=== PATIENT | male | born 1940 | race Caucasian/White ===

== ENCOUNTER 2017-08-03 16:51 | Inpatient (IN) | payer OTHER, MEDICARE ==
[~2017-08-03] VITALS: Ht 177.8 cm; Wt 83.0 kg
[~2017-08-03 16:51] MED LIST: ALLERGY MEDICATION; ARIP10 PO; ATOR40TA PO; Abilify5 MG PO; BIPOLAR MEDS; BUDE200IP INH; CARV6.25 PO; CITA20 PO; Daily Multiple1 EACH PO; FINA5 PO; Flunisolide25 ML NS; GABA300 PO; HYDACE10B PO; LATA.005SO BOTHEYES; Lanoxin250 MCG; METPRE4DP PO; METR500 PO; MULTIVITAMIN/MINERAL PO; ROSU10TA PO; ULTIMATE COLON CARE PO; VANC250 PO; WARF2.5 PO; WARF3 PO; WARF5 PO
[2017-08-03 17:47] LABS: Hematocrit 42.8 % (37.0-53.0); Mean Corpuscular HGB 30.4 pg (26.0-34.0); Mean Corpuscular Volume 87 fL (80-100); Mean Platelet Volume 10.5 fL (9.1-12.4); Platelet Count 108 K/mm3 (150-400); RDW Coefficient Variation 14.4 % (11.7-14.2); RDW Standard Deviation 45.8 fL (35.1-46.3); Red Blood Cell Count 4.93 M/mm3 (4.30-5.90); White Blood Cell Count 12.85 K/mm3 (4.00-11.30)
[2017-08-03 17:59] LABS: International Normalized Ratio 1.21; Prothrombin Time Results 12.7 Sec (9.7-11.5)
[2017-08-03 18:24] LABS: Alanine Aminotransfer (ALT/SGP 19 U/L (12-78); Albumin/Globulin Ratio 1.1 (0.8-1.8); Alk Phos 123 U/L (50-136); Anion Gap 11 mmol/L (6-16); Aspartate Aminotrans (AST/SGOT 21 U/L (12-37); Bilirubin, Total 1.7 mg/dL (0.1-1.0); Blood Urea Nitrogen 12 mg/dL (8-24); Bun/Creatinine Ratio 15.4 (12.0-20.0); CO2, Blood 27 mmol/L (21-32); Calcium, Blood 9.1 mg/dL (8.5-10.1); Chloride, Blood 95 mmol/L (98-108); Creatinine, Blood 0.78 mg/dL (0.60-1.20); Globulin, Blood 3.8 g/dL (2.2-4.0); Glomerular Filtration Rate >60 (60-); Glucose, Blood 106 mg/dL (70-99); Potassium, Blood 2.9 mmol/L (3.5-5.5); Sodium, Blood 133 mmol/L (136-145); Total Protein, Blood 7.8 g/dL (6.4-8.2); Troponin I <0.015 ng/mL (0.000-0.040)
[2017-08-03] MEDS ORDERED: ELIQUIS5 MG PO (18:36)
[2017-08-03] MEDS ORDERED: ALBU90OI61 INH (18:36)
[2017-08-03] MEDS ORDERED: Azopt10 ML (18:37)
[2017-08-03] MEDS ORDERED: ERGO400 PO (18:37)
[2017-08-03] MEDS ORDERED: CETI5 PO (18:37)
[2017-08-03] MEDS ORDERED: DILT120 PO (18:38)
[2017-08-03] MEDS ORDERED: DIPH50 PO (18:39)
[2017-08-03] MEDS ORDERED: Acidophilus La100 GM (18:40)
[2017-08-03] MEDS ORDERED: KETO10 PO (18:40)
[2017-08-03] MEDS ORDERED: LEVSOD50 PO (18:41)
[2017-08-03 18:58] LABS: BASOPHILS ABSOLUTE MAN 0.12 K/mm3 (0.00-0.23); BASOPHILS PERCENT MAN 1 % (0-2); EOSINOPHILS PERCENT MAN 0 % (0-6); LYMPHOCYTES % ATYPICAL MANUAL 1 % (0-0); LYMPHOCYTES ABSOLUTE MAN 2.57 K/mm3 (0.84-5.20); LYMPHOCYTES PERCENT MAN 19 % (21-46); MONOCYTES ABSOLUTE MAN 0.38 K/mm3 (0.16-1.47); MONOCYTES PERCENT MAN 3 % (4-13); NEUTROPHILS ABSOLUTE MAN 9.76 K/mm3 (1.96-9.15); SEG NEUTROPHILS PERCENT MAN 76 % (41-73); TOTAL CELLS COUNTED 100
[2017-08-03] MEDS ORDERED: COUGHTAB200 MG PO (21:07)
[2017-08-03] MEDS ORDERED: ONDA4ODT MM (21:10)
[2017-08-04 04:30] LABS: BASOPHILS ABSOLUTE AUTO 0.03 K/mm3 (0.00-0.23); BASOPHILS PERCENT AUTO 0 % (0-2); EOSINOPHILS ABSOLUTE AUTO 0.06 K/mm3 (0.00-0.68); EOSINOPHILS PERCENT AUTO 1 % (0-6); Hematocrit 43.9 % (37.0-53.0); Hemoglobin 15.2 g/dL (13.5-17.5); IMMATURE GRAN ABSOLUTE AUTO 0.02 K/mm3 (0.00-0.10); IMMATURE GRAN PERCENT AUTO 0 % (0-1); LYMPHOCYTES ABSOLUTE AUTO 1.64 K/mm3 (0.84-5.20); LYMPHOCYTES PERCENT AUTO 16 % (21-46); MONOCYTES ABSOLUTE AUTO 0.96 K/mm3 (0.16-1.47); MONOCYTES PERCENT AUTO 10 % (4-13); Mean Corpuscular HGB Conc 34.6 g/dL (31.5-36.5); Mean Corpuscular Volume 89 fL (80-100); Mean Platelet Volume 11.4 fL (9.1-12.4); NEUTROPHILS ABSOLUTE AUTO 7.38 K/mm3 (1.96-9.15); NEUTROPHILS PERCENT AUTO 73 % (41-73); Platelet Count 103 K/mm3 (150-400); RDW Coefficient Variation 14.5 % (11.7-14.2); Red Blood Cell Count 4.91 M/mm3 (4.30-5.90); White Blood Cell Count 10.09 K/mm3 (4.00-11.30)
[2017-08-04 04:51] LABS: Anion Gap 12 mmol/L (6-16); Blood Urea Nitrogen 11 mg/dL (8-24); Bun/Creatinine Ratio 15.6 (12.0-20.0); CO2, Blood 26 mmol/L (21-32); Calcium, Blood 8.4 mg/dL (8.5-10.1); Chloride, Blood 102 mmol/L (98-108); Glomerular Filtration Rate >60 (60-); Glucose, Blood 101 mg/dL (70-99); Potassium, Blood 2.5 mmol/L (3.5-5.5); Sodium, Blood 140 mmol/L (136-145)
[2017-08-04 21:09] LABS: Anion Gap 10 mmol/L (6-16); Blood Urea Nitrogen 11 mg/dL (8-24); Bun/Creatinine Ratio 15.3 (12.0-20.0); CO2, Blood 26 mmol/L (21-32); Calcium, Blood 8.4 mg/dL (8.5-10.1); Chloride, Blood 107 mmol/L (98-108); Creatinine, Blood 0.72 mg/dL (0.60-1.20); Glomerular Filtration Rate >60 (60-); Glucose, Blood 98 mg/dL (70-99); Potassium, Blood 3.6 mmol/L (3.5-5.5); Sodium, Blood 143 mmol/L (136-145)
[2017-08-05 06:16] LABS: Anion Gap 8 mmol/L (6-16); Blood Urea Nitrogen 12 mg/dL (8-24); Bun/Creatinine Ratio 16.2 (12.0-20.0); CO2, Blood 25 mmol/L (21-32); Calcium, Blood 8.4 mg/dL (8.5-10.1); Chloride, Blood 109 mmol/L (98-108); Creatinine, Blood 0.74 mg/dL (0.60-1.20); Glomerular Filtration Rate >60 (60-); Glucose, Blood 94 mg/dL (70-99); Sodium, Blood 142 mmol/L (136-145)
[2017-08-05] MEDS ORDERED: ALBU90OI INH (11:09)
[2017-08-05] MEDS ORDERED: DILT300 PO (11:10)
[2017-08-05] MEDS ORDERED: CIPR500 PO (11:13)
[2017-08-05] MEDS ORDERED: METR500 PO (11:13)
== END 2017-08-05 14:30 | disposition home or self-care (01) | DRG 309 ==
LOC: ER 16:51 → PCU 18:35
PROVIDERS: Emergency Medicine; Internal Medicine
DX: I48.91 Unspecified atrial fibrillation (principal); K57.92 Diverticulitis of intestine, part unspecified, without perforation or abscess without bleeding; I50.9 Heart failure, unspecified; J44.9 Chronic obstructive pulmonary disease, unspecified; E03.9 Hypothyroidism, unspecified; E87.6 Hypokalemia; F31.9 Bipolar disorder, unspecified; G47.33 Obstructive sleep apnea (adult) (pediatric); Z79.01 Long term (current) use of anticoagulants; Z86.718 Personal history of other venous thrombosis and embolism; Z87.891 Personal history of nicotine dependence
CPT/HCPCS: 36415; 80048; 80053; 83605; 83735; 83880; 84443; 84484; 85025; 85610; 85730; 87040; 93005; 93010; 94640; 94762; 96365; 96366; 99285; C1751; C9113; J0696; J2405; J2550; J7030; J7040; Q0163

== ENCOUNTER 2017-10-21 18:42 | Inpatient (IN) | payer MEDICARE ==
[~2017-10-21] VITALS: Ht 175.3 cm; Wt 76.8 kg
[~2017-10-21 18:42] MED LIST changes: +ALBU90OI INH; +ALBU90OI61 INH; +Acidophilus La100 GM; +Azopt10 ML; +CETI5 PO; +CIPR500 PO; +COUGHTAB200 MG PO; +DILT120 PO; +DILT300 PO; +DIPH50 PO; +ELIQUIS5 MG PO; +ERGO400 PO; +KETO10 PO; +LEVSOD50 PO; +ONDA4ODT MM
[2017-10-21] MEDS ORDERED: KETO60I IM (19:55)
[2017-10-21 21:36] LABS: BASOPHILS ABSOLUTE AUTO 0.03 K/mm3 (0.00-0.23); BASOPHILS PERCENT AUTO 0 % (0-2); EOSINOPHILS ABSOLUTE AUTO 0.01 K/mm3 (0.00-0.68); EOSINOPHILS PERCENT AUTO 0 % (0-6); Hematocrit 46.3 % (37.0-53.0); Hemoglobin 16.4 g/dL (13.5-17.5); IMMATURE GRAN ABSOLUTE AUTO 0.05 K/mm3 (0.00-0.10); IMMATURE GRAN PERCENT AUTO 0 % (0-1); LYMPHOCYTES ABSOLUTE AUTO 2.53 K/mm3 (0.84-5.20); LYMPHOCYTES PERCENT AUTO 20 % (21-46); MONOCYTES ABSOLUTE AUTO 1.17 K/mm3 (0.16-1.47); MONOCYTES PERCENT AUTO 9 % (4-13); Mean Corpuscular HGB 29.5 pg (26.0-34.0); Mean Corpuscular HGB Conc 35.4 g/dL (31.5-36.5); Mean Corpuscular Volume 83 fL (80-100); Mean Platelet Volume 11.3 fL (9.1-12.4); NEUTROPHILS ABSOLUTE AUTO 8.69 K/mm3 (1.96-9.15); NEUTROPHILS PERCENT AUTO 70 % (41-73); Platelet Count 128 K/mm3 (150-400); RDW Coefficient Variation 13.9 % (11.7-14.2); RDW Standard Deviation 42.7 fL (35.1-46.3); Red Blood Cell Count 5.56 M/mm3 (4.30-5.90); White Blood Cell Count 12.48 K/mm3 (4.00-11.30)
[2017-10-21 21:53] LABS: Magnesium, Blood 2.2 mg/dL (1.6-2.4); Troponin I 0.067 ng/mL (0.000-0.040)
[2017-10-21 22:11] LABS: Alanine Aminotransfer (ALT/SGP 21 U/L (12-78); Albumin, Blood 3.5 g/dL (3.4-5.0); Albumin/Globulin Ratio 0.9 (0.8-1.8); Alk Phos 134 U/L (50-136); Anion Gap 12 mmol/L (6-16); Aspartate Aminotrans (AST/SGOT 28 U/L (12-37); Bilirubin, Total 1.3 mg/dL (0.1-1.0); Blood Urea Nitrogen 25 mg/dL (8-24); CO2, Blood 30 mmol/L (21-32); Calcium, Blood 9.1 mg/dL (8.5-10.1); Chloride, Blood 89 mmol/L (98-108); Creatinine, Blood 1.19 mg/dL (0.60-1.20); Globulin, Blood 3.9 g/dL (2.2-4.0); Glomerular Filtration Rate >60 (60-); Glucose, Blood 166 mg/dL (70-99); Potassium, Blood 2.4 mmol/L (3.5-5.5); Sodium, Blood 131 mmol/L (136-145); Total Protein, Blood 7.4 g/dL (6.4-8.2)
[2017-10-21 22:16] LABS: Source, Urine Voided
[2017-10-21 22:19] LABS: Appearance, Urine Clear (Clear); Bilirubin, Urine Neg (Neg); Blood, Urine Neg (Neg); Color, Urine Yellow (P-Yellow); Glucose Qualitative, Urine Neg (Neg); Ketones, Urine Neg (Neg); Leukocyte Esterase, Urine Neg (Neg); Nitrite, Urine Neg (Neg); Protein, Urine 2+ (Neg); Urobilinogen, Urine NORM (Normal)
[2017-10-21 22:30] LABS: White Blood Cells, Urine Not Seen /hpf (0-5)
[2017-10-21 22:31] LABS: Amorphous Light (0-Heavy); Bacteria Not Seen /hpf; Red Blood Cells, Urine Not Seen /hpf (0-2); Squamous Epithelial Cells Not Seen /hpf (Few)
[2017-10-21 23:46] LABS: Bicarbonate Venous 35.2 mmol/L (24.0-30.0); PCO2 Venous 38.7 mmHg (38-42); PO2 Venous 27.9 mmHg (38-42); pH Blood Venous 7.58 (7.34-7.37)
[2017-10-22 05:11] LABS: BASOPHILS ABSOLUTE AUTO 0.02 K/mm3 (0.00-0.23); BASOPHILS PERCENT AUTO 0 % (0-2); EOSINOPHILS ABSOLUTE AUTO 0.03 K/mm3 (0.00-0.68); EOSINOPHILS PERCENT AUTO 0 % (0-6); Hematocrit 43.9 % (37.0-53.0); Hemoglobin 15.2 g/dL (13.5-17.5); IMMATURE GRAN ABSOLUTE AUTO 0.04 K/mm3 (0.00-0.10); IMMATURE GRAN PERCENT AUTO 0 % (0-1); LYMPHOCYTES ABSOLUTE AUTO 2.18 K/mm3 (0.84-5.20); LYMPHOCYTES PERCENT AUTO 19 % (21-46); MONOCYTES ABSOLUTE AUTO 1.12 K/mm3 (0.16-1.47); MONOCYTES PERCENT AUTO 10 % (4-13); Mean Corpuscular HGB 29.5 pg (26.0-34.0); Mean Corpuscular HGB Conc 34.6 g/dL (31.5-36.5); Mean Corpuscular Volume 85 fL (80-100); NEUTROPHILS ABSOLUTE AUTO 8.07 K/mm3 (1.96-9.15); NEUTROPHILS PERCENT AUTO 70 % (41-73); Platelet Count 118 K/mm3 (150-400); RDW Coefficient Variation 14.6 % (11.7-14.2); Red Blood Cell Count 5.15 M/mm3 (4.30-5.90); White Blood Cell Count 11.46 K/mm3 (4.00-11.30)
[2017-10-22 05:24] LABS: Anion Gap 9 mmol/L (6-16); Blood Urea Nitrogen 20 mg/dL (8-24); Bun/Creatinine Ratio 16.8 (12.0-20.0); CO2, Blood 28 mmol/L (21-32); Calcium, Blood 8.3 mg/dL (8.5-10.1); Chloride, Blood 101 mmol/L (98-108); Creatinine, Blood 1.19 mg/dL (0.60-1.20); Glomerular Filtration Rate >60 (60-); Glucose, Blood 117 mg/dL (70-99); Potassium, Blood 2.8 mmol/L (3.5-5.5); Sodium, Blood 138 mmol/L (136-145)
[2017-10-22 05:52] LABS: Base Excess Venous 4.9 mmol/L; Bicarbonate Venous 26.7 mmol/L (24.0-30.0); PCO2 Venous 48.9 mmHg (38-42); pH Blood Venous 7.39 (7.34-7.37)
[2017-10-22 06:41] LABS: Troponin I 0.061 ng/mL (0.000-0.040)
[2017-10-23 05:47] LABS: BASOPHILS ABSOLUTE AUTO 0.04 K/mm3 (0.00-0.23); BASOPHILS PERCENT AUTO 0 % (0-2); EOSINOPHILS ABSOLUTE AUTO 0.19 K/mm3 (0.00-0.68); EOSINOPHILS PERCENT AUTO 2 % (0-6); Hematocrit 48.3 % (37.0-53.0); Hemoglobin 15.8 g/dL (13.5-17.5); IMMATURE GRAN ABSOLUTE AUTO 0.04 K/mm3 (0.00-0.10); IMMATURE GRAN PERCENT AUTO 0 % (0-1); LYMPHOCYTES ABSOLUTE AUTO 2.71 K/mm3 (0.84-5.20); LYMPHOCYTES PERCENT AUTO 26 % (21-46); MONOCYTES ABSOLUTE AUTO 1.04 K/mm3 (0.16-1.47); MONOCYTES PERCENT AUTO 10 % (4-13); Mean Corpuscular HGB 29.8 pg (26.0-34.0); Mean Corpuscular HGB Conc 32.7 g/dL (31.5-36.5); NEUTROPHILS ABSOLUTE AUTO 6.61 K/mm3 (1.96-9.15); NEUTROPHILS PERCENT AUTO 62 % (41-73); RDW Coefficient Variation 14.6 % (11.7-14.2); RDW Standard Deviation 49.2 fL (35.1-46.3); White Blood Cell Count 10.63 K/mm3 (4.00-11.30)
[2017-10-23 05:50] LABS: Mean Corpuscular Volume 91 fL (80-100); Mean Platelet Volume 11.7 fL (9.1-12.4); Platelet Count 75 K/mm3 (150-400)
[2017-10-23 06:06] LABS: Albumin, Blood 3.3 g/dL (3.4-5.0); Anion Gap 8 mmol/L (6-16); Blood Urea Nitrogen 12 mg/dL (8-24); Bun/Creatinine Ratio 14.4 (12.0-20.0); CO2, Blood 23 mmol/L (21-32); Chloride, Blood 110 mmol/L (98-108); Creatinine, Blood 0.83 mg/dL (0.60-1.20); Glomerular Filtration Rate >60 (60-); Glucose, Blood 98 mg/dL (70-99); Magnesium, Blood 2.4 mg/dL (1.6-2.4); Phosphorus, Blood 1.8 mg/dL (2.5-4.9); Potassium, Blood 3.7 mmol/L (3.5-5.5); Sodium, Blood 141 mmol/L (136-145)
[2017-10-24 04:27] LABS: Hemoglobin 14.6 g/dL (13.5-17.5); Mean Corpuscular HGB 29.7 pg (26.0-34.0); Mean Corpuscular HGB Conc 33.2 g/dL (31.5-36.5); Mean Corpuscular Volume 89 fL (80-100); Mean Platelet Volume 11.1 fL (9.1-12.4); Platelet Count 94 K/mm3 (150-400); RDW Coefficient Variation 14.3 % (11.7-14.2); RDW Standard Deviation 46.3 fL (35.1-46.3); Red Blood Cell Count 4.92 M/mm3 (4.30-5.90); White Blood Cell Count 9.98 K/mm3 (4.00-11.30)
[2017-10-24 04:48] LABS: Albumin, Blood 2.9 g/dL (3.4-5.0); Anion Gap 8 mmol/L (6-16); Blood Urea Nitrogen 11 mg/dL (8-24); Bun/Creatinine Ratio 13.7 (12.0-20.0); CO2, Blood 23 mmol/L (21-32); Calcium, Blood 8.8 mg/dL (8.5-10.1); Chloride, Blood 111 mmol/L (98-108); Creatinine, Blood 0.81 mg/dL (0.60-1.20); Glomerular Filtration Rate >60 (60-); Glucose, Blood 84 mg/dL (70-99); Phosphorus, Blood 1.9 mg/dL (2.5-4.9); Potassium, Blood 3.5 mmol/L (3.5-5.5); Sodium, Blood 142 mmol/L (136-145)
[2017-10-24] MEDS ORDERED: DILT180 PO (13:33)
[2017-10-24] MEDS ORDERED: MIRALAX17 GM PO (13:39)
[2017-10-24] MEDS ORDERED: ONDA4ODT MM (13:42)
== END 2017-10-24 15:21 | disposition home or self-care (01) | DRG 308 ==
LOC: ER 18:42 → PCU 20:34
PROVIDERS: Emergency Medicine; Family Medicine; Hospitalist; Internal Medicine
DX: I48.2 Chronic atrial fibrillation (principal); G93.41 Metabolic encephalopathy; E87.2 Acidosis; E87.1 Hypo-osmolality and hyponatremia; Z79.01 Long term (current) use of anticoagulants; E87.6 Hypokalemia; E83.39 Other disorders of phosphorus metabolism; R79.89 Other specified abnormal findings of blood chemistry; D69.6 Thrombocytopenia, unspecified; F31.9 Bipolar disorder, unspecified; G47.33 Obstructive sleep apnea (adult) (pediatric); I11.0 Hypertensive heart disease with heart failure; K57.30 Diverticulosis of large intestine without perforation or abscess without bleeding
CPT/HCPCS: 36415; 71046; 74176; 80048; 80053; 80069; 81001; 82803; 83605; 83735; 84132; 84145; 84484; 85025; 85027; 87040; 93005; 93010; 96365; 96366; 96368; 96375; 99285; C1751; J0696; J1120; J2060; J2405; J2550; J3010; J3370; J3411; J3475; J3480; J7030; J7040; J7042; J7050; J7060

== ENCOUNTER 2020-09-03 13:39 | Emergency (ER) | payer OTHER, MEDICARE ==
[~2020-09-03] VITALS: Ht 177.8 cm; Wt 127.0 kg
[~2020-09-03 13:39] MED LIST changes: -Azopt10 ML; +DILTIAZEM 24HR300 M2 PO; +KETO60I IM; -LEVSOD50 PO; +MIRALAX17 GM PO; +SIMBRINZA 1%-0.28 ML RIGHTEYE
[2020-09-03 14:15] LABS: BASOPHILS ABSOLUTE AUTO 0.04 K/mm3 (0.00-0.23); BASOPHILS PERCENT AUTO 0 % (0-2); EOSINOPHILS ABSOLUTE AUTO 0.03 K/mm3 (0.00-0.68); EOSINOPHILS PERCENT AUTO 0 % (0-6); Hemoglobin 14.9 g/dL (13.5-17.5); IMMATURE GRAN ABSOLUTE AUTO 0.04 K/mm3 (0.00-0.10); IMMATURE GRAN PERCENT AUTO 0 % (0-1); LYMPHOCYTES ABSOLUTE AUTO 1.35 K/mm3 (0.84-5.20); LYMPHOCYTES PERCENT AUTO 15 % (21-46); MONOCYTES ABSOLUTE AUTO 0.32 K/mm3 (0.16-1.47); MONOCYTES PERCENT AUTO 4 % (4-13); Mean Corpuscular HGB 30.3 pg (26.0-34.0); Mean Corpuscular HGB Conc 33.1 g/dL (31.5-36.5); Mean Corpuscular Volume 92 fL (80-100); Mean Platelet Volume 10.9 fL (9.1-12.4); NEUTROPHILS ABSOLUTE AUTO 7.21 K/mm3 (1.96-9.15); NEUTROPHILS PERCENT AUTO 80 % (41-73); Platelet Count 151 K/mm3 (150-400); RDW Coefficient Variation 14.7 % (11.7-14.2); RDW Standard Deviation 49.1 fL (35.1-46.3); Red Blood Cell Count 4.92 M/mm3 (4.30-5.90); White Blood Cell Count 8.99 K/mm3 (4.00-11.30)
[2020-09-03 14:32] LABS: Albumin, Blood 3.5 g/dL (3.4-5.0); Albumin/Globulin Ratio 0.8 (0.8-1.8); Bilirubin, Total 0.6 mg/dL (0.1-1.0); Bun/Creatinine Ratio 17.7 (12.0-20.0); Calcium, Blood 9.7 mg/dL (8.5-10.1); Creatinine, Blood 1.3 mg/dL (0.60-1.20); Globulin, Blood 4.3 g/dL (2.2-4.0); Potassium, Blood 4.7 mmol/L (3.5-5.5); Total Protein, Blood 7.8 g/dL (6.4-8.2)
[2020-09-03] MEDS ORDERED: ATOR40TA PO (15:31)
[2020-09-03] MEDS ORDERED: ZYRTEC10 M2 PO (15:32)
[2020-09-03] MEDS ORDERED: METAMUCIL POWD575 GM PO (15:35)
[2020-09-03] MEDS ORDERED: TOPROL XL200 MG PO (15:37)
== END 2020-09-03 19:25 | disposition home or self-care (01) ==
LOC: ER 13:39
PROVIDERS: Physician Assistant
DX: J44.1 Chronic obstructive pulmonary disease with (acute) exacerbation (principal); I48.91 Unspecified atrial fibrillation; I50.9 Heart failure, unspecified; Z79.51 Long term (current) use of inhaled steroids; Z79.899 Other long term (current) drug therapy; Z87.891 Personal history of nicotine dependence
CPT/HCPCS: 36415; 71046; 80053; 83880; 84484; 85025; 93005; 93010; 94644; 96374; 99285-25; J2930

== ENCOUNTER 2020-12-26 13:10 | Inpatient (IN) | payer OTHER ==
[~2020-12-26] VITALS: Ht 177.8 cm; Wt 124.0 kg
[~2020-12-26 13:10] MED LIST changes: +METAMUCIL POWD575 GM PO; +TOPROL XL200 MG PO; +ZYRTEC10 M2 PO
[2020-12-26] MEDS ORDERED: CITA20 PO (13:34)
[2020-12-26] MEDS ORDERED: FURO40 PO (13:35)
[2020-12-26] MEDS ORDERED: HYDHCL25 PO (13:37)
[2020-12-26] MEDS ORDERED: EUTHYROX88 MCG PO (13:38)
[2020-12-26] MEDS ORDERED: ASMANEX220 M14 INH (13:40)
[2020-12-26] MEDS ORDERED: KLOR-CON 1010 ME1 PO (13:41)
[2020-12-26 14:17] LABS: Alanine Aminotransfer (ALT/SGP 38 U/L (12-78); Albumin, Blood 3.3 g/dL (3.4-5.0); Albumin/Globulin Ratio 0.8 (0.8-1.8); Alk Phos 134 U/L (50-136); Anion Gap 6 mmol/L (6-16); Aspartate Aminotrans (AST/SGOT 26 U/L (12-37); Bilirubin, Total 0.8 mg/dL (0.1-1.0); Blood Urea Nitrogen 18 mg/dL (8-24); Bun/Creatinine Ratio 15.5 (12.0-20.0); CO2, Blood 25 mmol/L (21-32); Calcium, Blood 8.7 mg/dL (8.5-10.1); Chloride, Blood 107 mmol/L (98-108); Creatinine, Blood 1.16 mg/dL (0.60-1.20); Globulin, Blood 4.1 g/dL (2.2-4.0); Glomerular Filtration Rate >60 (60-); Glucose, Blood 119 mg/dL (70-99); Potassium, Blood 4.2 mmol/L (3.5-5.5); Sodium, Blood 138 mmol/L (136-145); Total Protein, Blood 7.4 g/dL (6.4-8.2); Troponin I <0.015 ng/mL (0.000-0.040)
[2020-12-26 14:21] LABS: BASOPHILS ABSOLUTE AUTO 0.04 K/mm3 (0.00-0.23); BASOPHILS PERCENT AUTO 1 % (0-2); EOSINOPHILS ABSOLUTE AUTO 0.12 K/mm3 (0.00-0.68); EOSINOPHILS PERCENT AUTO 2 % (0-6); Hematocrit 42.7 % (37.0-53.0); IMMATURE GRAN ABSOLUTE AUTO 0.05 K/mm3 (0.00-0.10); IMMATURE GRAN PERCENT AUTO 1 % (0-1); LYMPHOCYTES ABSOLUTE AUTO 2.04 K/mm3 (0.84-5.20); LYMPHOCYTES PERCENT AUTO 25 % (21-46); MONOCYTES ABSOLUTE AUTO 0.67 K/mm3 (0.16-1.47); MONOCYTES PERCENT AUTO 8 % (4-13); Mean Corpuscular HGB Conc 32.8 g/dL (31.5-36.5); Mean Corpuscular Volume 95 fL (80-100); Mean Platelet Volume 11.5 fL (9.1-12.4); NEUTROPHILS ABSOLUTE AUTO 5.13 K/mm3 (1.96-9.15); NEUTROPHILS PERCENT AUTO 64 % (41-73); Platelet Count 123 K/mm3 (150-400); RDW Coefficient Variation 14.8 % (11.7-14.2); Red Blood Cell Count 4.52 M/mm3 (4.30-5.90); White Blood Cell Count 8.05 K/mm3 (4.00-11.30)
[2020-12-26] MEDS ORDERED: VITAMIN D31000 UNI1 PO (16:40)
[2020-12-26] MEDS ORDERED: PRESERVISION A1 EAC1 PO (16:51)
[2020-12-26] MEDS ORDERED: POTA10T PO (16:51)
[2020-12-26] MEDS ORDERED: STIOLTO RESPIMAT4 G1 INH (16:52)
[2020-12-26 22:44] LABS: Source, Urine Catheter
[2020-12-26 22:47] LABS: Bilirubin, Urine Neg (Neg); Blood, Urine Neg (Neg); Glucose Qualitative, Urine Neg (Neg); Ketones, Urine Neg (Neg); Leukocyte Esterase, Urine Neg (Neg); Nitrite, Urine Neg (Neg); Protein, Urine Neg (Neg); Urobilinogen, Urine NORM (Normal)
[2020-12-26 22:50] LABS: Appearance, Urine Clear (Clear); Color, Urine Yellow (P-Yellow)
--- NOTE | 2020-12-27 04:59 | NUR ---
SHIFT SUMMARY PT TO UNIT AT BEGINNING OF SHIFT ROM ED. AXO. ON RA. IN AFIB 40'S HR. SOME CRACKLES NOTED TO BASES. ADMISSION COMPLETE. PT GIVEN 4MG BUMEX. ORDER RECEIVED FOR CATHETER TO BE PLACED TO AID IN DIURESING AND TO AID PT HE IS QUITE WEAK AND STRUGGLES TO USE URINAL AT TIMES. PT THANKFUL FOR CATHETER FOR THE NOIGHT, HAS OUTPUT >3000ML SO FAR POST BUMEX. OTHERWISE, PT RESTING POST ADMIT. USES CALL LIGHT APPROPRIATELY. BED ALARM ON. WILL CONTINUE TO MONITOR UNTIL SHIFT CHANGE.
[2020-12-27 05:00] LABS: BASOPHILS ABSOLUTE AUTO 0.05 K/mm3 (0.00-0.23); BASOPHILS PERCENT AUTO 1 % (0-2); EOSINOPHILS ABSOLUTE AUTO 0.15 K/mm3 (0.00-0.68); EOSINOPHILS PERCENT AUTO 2 % (0-6); Hematocrit 44.7 % (37.0-53.0); Hemoglobin 14.5 g/dL (13.5-17.5); IMMATURE GRAN ABSOLUTE AUTO 0.05 K/mm3 (0.00-0.10); IMMATURE GRAN PERCENT AUTO 1 % (0-1); LYMPHOCYTES ABSOLUTE AUTO 2.07 K/mm3 (0.84-5.20); LYMPHOCYTES PERCENT AUTO 24 % (21-46); MONOCYTES ABSOLUTE AUTO 0.68 K/mm3 (0.16-1.47); MONOCYTES PERCENT AUTO 8 % (4-13); Mean Corpuscular HGB 30.5 pg (26.0-34.0); Mean Corpuscular HGB Conc 32.4 g/dL (31.5-36.5); Mean Corpuscular Volume 94 fL (80-100); Mean Platelet Volume 11.1 fL (9.1-12.4); NEUTROPHILS PERCENT AUTO 65 % (41-73); Platelet Count 114 K/mm3 (150-400); RDW Coefficient Variation 14.6 % (11.7-14.2); RDW Standard Deviation 50.5 fL (35.1-46.3); Red Blood Cell Count 4.75 M/mm3 (4.30-5.90)
[2020-12-27 05:39] LABS: Alanine Aminotransfer (ALT/SGP 35 U/L (12-78); Albumin, Blood 3.5 g/dL (3.4-5.0); Albumin/Globulin Ratio 0.9 (0.8-1.8); Alk Phos 140 U/L (50-136); Anion Gap 6 mmol/L (6-16); Aspartate Aminotrans (AST/SGOT 14 U/L (12-37); Bilirubin, Total 0.7 mg/dL (0.1-1.0); Blood Urea Nitrogen 18 mg/dL (8-24); Bun/Creatinine Ratio 16.8 (12.0-20.0); CO2, Blood 28 mmol/L (21-32); Calcium, Blood 8.7 mg/dL (8.5-10.1); Chloride, Blood 109 mmol/L (98-108); Creatinine, Blood 1.07 mg/dL (0.60-1.20); Glomerular Filtration Rate >60 (60-); Glucose, Blood 96 mg/dL (70-99); Magnesium, Blood 2.6 mg/dL (1.6-2.4); Potassium, Blood 3.2 mmol/L (3.5-5.5); Sodium, Blood 143 mmol/L (136-145); Total Protein, Blood 7.5 g/dL (6.4-8.2)
--- NOTE | 2020-12-27 08:00 | NUR ---
pt laying in bed watching tv, a/ox3, pleasant and cooperative with care, follows commands well, denies pain, states he slept well, lungs are clear t/o, resp even and unlabored, no cough noted, hrirr, tele in place running afib per monitor, see strip, iv site to rac is clear and patent, btx4, abd round soft nontender, last bm yestersay morning, voids via thompson at this time, skin c/w/d, rafita marino, call light in reach.
--- NOTE | 2020-12-27 18:13 | NUR ---
pt had an uneventful day, no complaints or acute changes this shift, call light in reach.
--- NOTE | 2020-12-28 04:12 | NUR ---
SHIFT SUMARY NO ACUTE CHANGES THIS SHFIT. VSS. REMAINS IN AFIB 60'S. USING HOME CPAP TONIGHT. COUE CATHETER PATENT AND DRAINING, PT DIURESING WELL. DENIES CP/PRESSURE. DENIES SOB. EKG ACCQUIRED ORDERED. OTHERWISE, PT RESTING T/O SHIFT. WILL CONTINUE TO MONITOR UNTIL SHIFT CHANGE.
[2020-12-28 04:26] LABS: Albumin, Blood 3.2 g/dL (3.4-5.0); Anion Gap 6 mmol/L (6-16); Blood Urea Nitrogen 20 mg/dL (8-24); Bun/Creatinine Ratio 17.9 (12.0-20.0); CO2, Blood 26 mmol/L (21-32); Calcium, Blood 8.5 mg/dL (8.5-10.1); Chloride, Blood 107 mmol/L (98-108); Creatinine, Blood 1.12 mg/dL (0.60-1.20); Glomerular Filtration Rate >60 (60-); Glucose, Blood 109 mg/dL (70-99); Magnesium, Blood 2.4 mg/dL (1.6-2.4); Phosphorus, Blood 2.5 mg/dL (2.5-4.9); Potassium, Blood 3.4 mmol/L (3.5-5.5); Sodium, Blood 139 mmol/L (136-145)
--- NOTE | 2020-12-28 18:09 | NUR ---
SHIFT SUMMARY PT REMAINS BRADYCARDIC AT TIMES, ASYMPTOMATIC. DENIES SOB. PT HAS BEEN AAX4 DURING SHIFT. RESTING AND USING URINAL INDEPENDANTLY. KARAN REMOVED THIS AM. CONTINUES TO RECIEVE FREQUENT BUMEX. TOLERATING PO WELL. CPAP IN ROOM IF NEEDED WHILE ASLEEP. PT LOOKS FORWARD TO GOING HOME. CURRENTLY MED STATUS AWAITING A BED.
--- NOTE | 2020-12-29 05:50 | NUR ---
SHIFT SUMMARY PT IS ALERT AND ORIENTED. VITALS ARE STABLE AND ON ROOM AIR. THERE HAVE BEEN NO ACUTE CHANGES. PT HAS BEEN USING URINAL. PT DENIES CHEST PAIN OR SOB. PT IS ABLE TO TAKE PO MEDS AND IS ON A FLUID RESTRICTION WHICH HE IS FOLLOWING. CALL LIGHT IS WITHIN REACH.
[2020-12-29 09:25] LABS: Albumin, Blood 3.3 g/dL (3.4-5.0); Anion Gap 3 mmol/L (6-16); Blood Urea Nitrogen 21 mg/dL (8-24); Bun/Creatinine Ratio 22.1 (12.0-20.0); CO2, Blood 27 mmol/L (21-32); Calcium, Blood 9.1 mg/dL (8.5-10.1); Chloride, Blood 111 mmol/L (98-108); Creatinine, Blood 0.95 mg/dL (0.60-1.20); Glomerular Filtration Rate >60 (60-); Glucose, Blood 147 mg/dL (70-99); Phosphorus, Blood 2.8 mg/dL (2.5-4.9); Potassium, Blood 3.9 mmol/L (3.5-5.5); Sodium, Blood 141 mmol/L (136-145)
[2020-12-29] MEDS ORDERED: BUMETANIDE2 MG PO (11:53)
[2020-12-29] MEDS ORDERED: METO25ER PO (11:54)
--- NOTE | 2020-12-29 16:57 | NUR ---
DISCHARGE NOTE PT A&Ox3; CALM AND COOPERATIVE WITH CARE. PT RESTING IN BED DURING SHIFT. UP TO CHIAR WITH SBA. SPO2>90% ON RA; HOME CPAP AT NIGHT. PT DENIES PAIN, CHEST PAIN, NAUSEA AND DIZZINESS. PT RECEIVING IV BUMEX. VSS. NO OTHER ACUTE CHANGES NOTED DURING SHIFT. EDUCATED PT ON DISCHARGE INSTRCTIONS, FOLLOW UP APPOINTMENTS AND MEDCIATIONS. [facility] PER [facility] REQUEST. [facility] ROOM [facility] AT 1440. CPAP MACHINE WENT HOME WITH PATIENT. PT EDCUATED ON DIETARY CHANGES INCLUDING LOW SODIUM DIET AND FLUID RESTRICTION. PT ASKING QUESTIONS AND APEPARS TO BE COMPREHENDING EDCUATION.
== END 2020-12-29 14:41 | disposition home health service (06) | DRG 292 ==
LOC: ER 13:10 → PCU 16:48
PROVIDERS: Emergency Medicine; Internal Medicine; ADMIT Internal Medicine
DX: I50.43 Acute on chronic combined systolic (congestive) and diastolic (congestive) heart failure (principal); I48.20 Chronic atrial fibrillation, unspecified; I48.0 Paroxysmal atrial fibrillation; Z66 Do not resuscitate; G47.33 Obstructive sleep apnea (adult) (pediatric); J44.9 Chronic obstructive pulmonary disease, unspecified; F31.9 Bipolar disorder, unspecified; E03.9 Hypothyroidism, unspecified; I35.0 Nonrheumatic aortic (valve) stenosis; E66.9 Obesity, unspecified; E78.5 Hyperlipidemia, unspecified; D69.6 Thrombocytopenia, unspecified; F41.8 Other specified anxiety disorders; Z86.711 Personal history of pulmonary embolism; Z86.718 Personal history of other venous thrombosis and embolism; Z88.8 Allergy status to other drugs, medicaments and biological substances; Z79.01 Long term (current) use of anticoagulants; Z79.899 Other long term (current) drug therapy
CPT/HCPCS: 36415; 71045; 80053; 80069; 81003; 83735; 83880; 84443; 84484; 85025; 93005; 93010; 93306; 94640; 94664; 94760; 97110; 97116; 97162; 97165; 97535; 99285-25; A9270; J1650

== ENCOUNTER 2022-05-10 12:29 | Emergency (ER) | payer OTHER ==
[~2022-05-10 12:29] MED LIST changes: +ASMANEX220 M14 INH; +BUMETANIDE2 MG PO; +EUTHYROX88 MCG PO; +FURO40 PO; +HYDHCL25 PO; +KLOR-CON 1010 ME1 PO; +METO25ER PO; +POTA10T PO; +PRED20 PO; +PRESERVISION A1 EAC1 PO; +STIOLTO RESPIMAT4 G1 INH; +VITAMIN D31000 UNI1 PO
[2022-05-10] MEDS ORDERED: Prednisone20 MG PO (16:21)
== END 2022-05-10 16:50 | disposition home or self-care (01) ==
DX: J44.1 Chronic obstructive pulmonary disease with (acute) exacerbation (principal); B34.9 Viral infection, unspecified; I48.91 Unspecified atrial fibrillation; I50.9 Heart failure, unspecified; Z20.822 Contact with and (suspected) exposure to COVID-19; Z88.8 Allergy status to other drugs, medicaments and biological substances; Z79.899 Other long term (current) drug therapy; Z79.01 Long term (current) use of anticoagulants; Z87.891 Personal history of nicotine dependence

== ENCOUNTER 2022-05-18 18:27 | Inpatient (IN) | payer OTHER ==
[~2022-05-18] VITALS: Ht 177.8 cm; Wt 101.5 kg
[~2022-05-18 18:27] MED LIST changes: +Prednisone20 MG PO
[2022-05-18 20:00] LABS: BASOPHILS ABSOLUTE AUTO 0.06 K/mm3 (0.00-0.23); BASOPHILS PERCENT AUTO 0 % (0-2); EOSINOPHILS ABSOLUTE AUTO 0.03 K/mm3 (0.00-0.68); EOSINOPHILS PERCENT AUTO 0 % (0-6); Hematocrit 45.5 % (37.0-53.0); Hemoglobin 15.6 g/dL (13.5-17.5); IMMATURE GRAN ABSOLUTE AUTO 0.15 K/mm3 (0.00-0.10); IMMATURE GRAN PERCENT AUTO 1 % (0-1); LYMPHOCYTES ABSOLUTE AUTO 2.27 K/mm3 (0.84-5.20); LYMPHOCYTES PERCENT AUTO 14 % (21-46); MONOCYTES ABSOLUTE AUTO 1.04 K/mm3 (0.16-1.47); MONOCYTES PERCENT AUTO 6 % (4-13); Mean Corpuscular HGB 30.3 pg (26.0-34.0); Mean Corpuscular HGB Conc 34.3 g/dL (31.5-36.5); Mean Corpuscular Volume 88 fL (80-100); Mean Platelet Volume 11.6 fL (9.1-12.4); NEUTROPHILS ABSOLUTE AUTO 13.12 K/mm3 (1.96-9.15); NEUTROPHILS PERCENT AUTO 79 % (41-73); Platelet Count 151 K/mm3 (150-400); RDW Coefficient Variation 14.2 % (11.7-14.2); RDW Standard Deviation 46.2 fL (35.1-46.3); Red Blood Cell Count 5.15 M/mm3 (4.30-5.90); White Blood Cell Count 16.67 K/mm3 (4.00-11.30)
[2022-05-18 20:12] LABS: International Normalized Ratio 1.26
[2022-05-18 20:20] LABS: Albumin, Blood 3.7 g/dL (3.4-5.0); Albumin/Globulin Ratio 0.8 (0.8-1.8); Bilirubin, Total 1.4 mg/dL (0.1-1.0); Bun/Creatinine Ratio 12.4 (12.0-20.0); Calcium, Blood 10.1 mg/dL (8.5-10.1); Creatinine, Blood 1.53 mg/dL (0.60-1.20); Globulin, Blood 4.7 g/dL (2.2-4.0); Potassium, Blood 3.7 mmol/L (3.5-5.5); Total Protein, Blood 8.4 g/dL (6.4-8.2)
[2022-05-18 22:52] LABS: Hematocrit 41.2 % (37.0-53.0); Hemoglobin 14.5 g/dL (13.5-17.5)
[2022-05-19 06:35] LABS: BASOPHILS ABSOLUTE AUTO 0.03 K/mm3 (0.00-0.23); BASOPHILS PERCENT AUTO 0 % (0-2); EOSINOPHILS PERCENT AUTO 0 % (0-6); Hematocrit 41.9 % (37.0-53.0); Hemoglobin 14.6 g/dL (13.5-17.5); IMMATURE GRAN ABSOLUTE AUTO 0.06 K/mm3 (0.00-0.10); IMMATURE GRAN PERCENT AUTO 1 % (0-1); LYMPHOCYTES ABSOLUTE AUTO 1.09 K/mm3 (0.84-5.20); LYMPHOCYTES PERCENT AUTO 9 % (21-46); MONOCYTES ABSOLUTE AUTO 0.51 K/mm3 (0.16-1.47); MONOCYTES PERCENT AUTO 4 % (4-13); Mean Corpuscular HGB 30.7 pg (26.0-34.0); Mean Corpuscular HGB Conc 34.8 g/dL (31.5-36.5); Mean Corpuscular Volume 88 fL (80-100); Mean Platelet Volume 11.4 fL (9.1-12.4); NEUTROPHILS ABSOLUTE AUTO 10.43 K/mm3 (1.96-9.15); NEUTROPHILS PERCENT AUTO 86 % (41-73); Platelet Count 143 K/mm3 (150-400); RDW Coefficient Variation 14.3 % (11.7-14.2); RDW Standard Deviation 46.5 fL (35.1-46.3); Red Blood Cell Count 4.75 M/mm3 (4.30-5.90); White Blood Cell Count 12.12 K/mm3 (4.00-11.30)
--- NOTE | 2022-05-19 06:51 | NUR ---
SHIFT SUMMARY: PATIENT ARRIVED BY ROSY AT 0355 DURING MEDITECH DOWNTIME. HYPERTENSIVE AND TACHYCARDIC, DRY HEAVING. MEDICATED PER EMAR. USES URINAL AT BEDSIDE PER REPORT. RESTING IN BED WITH ALARM SET. PLAN FOR SCOPE TODAY. PATIENT IS NPO "WITH ALL THE ICE HE WANTS" PER MD.
[2022-05-19 07:05] LABS: Albumin, Blood 3.3 g/dL (3.4-5.0); Albumin/Globulin Ratio 0.8 (0.8-1.8); Bilirubin, Total 1.1 mg/dL (0.1-1.0); Bun/Creatinine Ratio 13.1 (12.0-20.0); Calcium, Blood 9.2 mg/dL (8.5-10.1); Creatinine, Blood 1.99 mg/dL (0.60-1.20); Globulin, Blood 4.2 g/dL (2.2-4.0); Total Protein, Blood 7.5 g/dL (6.4-8.2)
[2022-05-19 10:46] LABS: Influenza A, PCR NEGATIVE (NEGATIVE); Influenza B, PCR NEGATIVE (NEGATIVE); Resp Syncytial Virus, PCR NEGATIVE (NEGATIVE); SARS-Cov-2 (COVID-19) PCR, MMC NEGATIVE (NEGATIVE)
[2022-05-19 11:50] LABS: Hematocrit 42.1 % (37.0-53.0); Hemoglobin 14.5 g/dL (13.5-17.5)
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
--- NOTE | 2022-05-19 14:06 | NUR ---
05/19/22 [address] CROFT; SEE ANESTHESIA RECORDS.
--- NOTE | 2022-05-19 17:35 | NUR ---
SHIFT SUMMARY; ASSUMED CARE AT 0700. A/A/OX4 DURING SHIFT. MOVES SELF FOR REPOSITIONING ON GURNEY INDEPENDANTLY. NO EMESIS DURING SHIFT. VSS, TAKEN TO DAY SURGERY IN AFTERNOON FOR EGD. NO ACUTE MEDICAL CHANGES, WILL CONTINUE TO MONITOR AND TREAT UNTIL CHANGE OF SHIFT.
[2022-05-19 17:53] LABS: Hematocrit 40.3 % (37.0-53.0); Hemoglobin 13.7 g/dL (13.5-17.5)
--- NOTE | 2022-05-19 23:52 | NUR ---
UPDATE: PATIENT DRY HEAVING, HR >135, FLUSHED, REPORTS SOB AND CHEST PAIN. LUNGS NEW ONSET WHEEZE. HYPERTENSIVE. CALL TO RESIDENT TO COME ASSESS PATIENT. MANUAL BP TAKEN CONFIRMED MONITOR BPS WITH SYS >160 AND DBP >100. O2 1L NC APPLIED FOR COMFORT. RT GAVE BREATHING TX. NEW ORDERS RECEIVED AND MEDICATED PER EMAR. PATIENT SETTLED AFTER BREATHING TX BUT IS NOW RESTLESS, DENIES CHEST PAIN, COMPLAINS OF STOMACH PAIN AND CONTINUES TO DRY HEAVE. CALL TO RESIDENT FOR NEW ORDERS TO ADDRESS STOMACH PAIN ZOFRAN DID NOT RELIEVE NAUSEA.
--- NOTE | 2022-05-20 01:35 | NUR ---
UPDATE: PATIENT HYPERTENSIVE BUT IMPROVED FROM EARLIER BPS - SYS <160 AND DBP <100. PATIENT ENDORSES NAUSEA AND STATES HE'S VOMITING BUT NO EMESIS NOTED. ABX STOPPED WITH 218 MLS/250 MLS INFUSED TO PRESERVE NEW IV FROM PATIENT PULLING/CATCHING LINE HE REPOSITIONS SELF IN BED. PATIENT HAS LOST 2 IV LINES THIS SHIFT D/T IV FAILURE.
[2022-05-20 03:39] LABS: Hematocrit 40.1 % (37.0-53.0); Hemoglobin 13.7 g/dL (13.5-17.5); Mean Corpuscular HGB 30.2 pg (26.0-34.0); Mean Corpuscular HGB Conc 34.2 g/dL (31.5-36.5); Mean Corpuscular Volume 88 fL (80-100); Mean Platelet Volume 10.7 fL (9.1-12.4); Platelet Count 141 K/mm3 (150-400); RDW Coefficient Variation 14.6 % (11.7-14.2); RDW Standard Deviation 47.4 fL (35.1-46.3); Red Blood Cell Count 4.54 M/mm3 (4.30-5.90); White Blood Cell Count 18.67 K/mm3 (4.00-11.30)
[2022-05-20 04:36] LABS: Bun/Creatinine Ratio 18.3 (12.0-20.0); Calcium, Blood 8.8 mg/dL (8.5-10.1); Creatinine, Blood 1.86 mg/dL (0.60-1.20); Potassium, Blood 3.1 mmol/L (3.5-5.5)
--- NOTE | 2022-05-20 06:38 | NUR ---
SHIFT SUMMARY: PATIENT CONTINUES TO BE HYPERTENSIVE, TACHYCARDIC, NAUSEOUS W/O EMESIS. O2 SATS >94% RA AND AFEBRILE. PATIENT SLEPT FROM [id number] AND AWOKE RESTLESS, MOANING, AND DRY HEAVING. PATIENT DENIES SOB AND CHEST PAIN AT THIS TIME. MEDICATED PER EMAR. HYDRALAZINE ORDER DC'D. NEW IV IS POSITIONAL TO FLUSH. USES URINAL AT BEDSIDE. BED LOW WITH CALL LIGHT IN REACH AND ALARM SET.
[2022-05-20] MEDS ORDERED: PRED20 PO (12:52)
[2022-05-20] MEDS ORDERED: AZIT500 PO (12:54)
[2022-05-20] MEDS ORDERED: OMEP20ER PO (12:54)
== END 2022-05-20 16:10 | disposition home or self-care (01) | DRG 378 ==
LOC: ER 18:27 → PCU 21:24 → ERHOLD 21:24 → PCU 05-19 03:55
PROVIDERS: Internal Medicine; Internal Medicine Gastroenterology; Student in an Organized Health Care Education/Training Program; ADMIT Internal Medicine
PROC: 0DB68ZZ Excision of Stomach, Via Natural or Artificial Opening Endoscopic (ICD-10-PCS; principal; 2022-05-19 14:00)
DX: K92.0 Hematemesis (principal); I13.0 Hypertensive heart and chronic kidney disease with heart failure and stage 1 through stage 4 chronic kidney disease, or unspecified chronic kidney disease; I48.20 Chronic atrial fibrillation, unspecified; I50.42 Chronic combined systolic (congestive) and diastolic (congestive) heart failure; J44.0 Chronic obstructive pulmonary disease with (acute) lower respiratory infection; J44.1 Chronic obstructive pulmonary disease with (acute) exacerbation; F10.20 Alcohol dependence, uncomplicated; Z20.822 Contact with and (suspected) exposure to COVID-19; E87.6 Hypokalemia; N18.30 Chronic kidney disease, stage 3 unspecified; K31.89 Other diseases of stomach and duodenum; K31.7 Polyp of stomach and duodenum; Z28.21 Immunization not carried out because of patient refusal; K44.9 Diaphragmatic hernia without obstruction or gangrene; G47.33 Obstructive sleep apnea (adult) (pediatric); E03.9 Hypothyroidism, unspecified; F41.9 Anxiety disorder, unspecified; F32.A Depression, unspecified; Z99.89 Dependence on other enabling machines and devices; Z88.8 Allergy status to other drugs, medicaments and biological substances; Z98.890 Other specified postprocedural states; Z86.718 Personal history of other venous thrombosis and embolism; Z79.899 Other long term (current) drug therapy
CPT/HCPCS: 0241U; 36415; 71045; 74176; 80048; 80053; 82272; 82947; 83605; 83690; 83735; 83880; 84484; 85014; 85018; 85025; 85027; 85610; 86850; 86900; 86901; 87040; 88305; 93005; 93010; 94640; 94664; 94760; 96374; 96375; 99285-25; C9113; J0360; J0456; J0696; J2250; J2354; J2370; J2405; J2704; J2765; J2930; J3010; J3480; J7030; J7050; J7120